=== PATIENT | female | born 1935 | race Caucasian/White ===

== ENCOUNTER 2016-11-13 20:29 | Inpatient (IN) | payer OTHER ==
[~2016-11-13] VITALS: Ht 160 cm; Wt 68.0 kg
--- NOTE | ~2016-11-13 | 2DMMODE ---
[facility] [address] [place] [address] 2 D/M-MODE ECHOCARDIOGRAM Name: LONG JAMES Room #: 422-P [facility] IN [facility]#: [id number] Admission: 11/13/16 Attend Phys: Greg Wong MD Discharge: Date of : 33 Date of Service: 11/14/16 1039 Report #: [id number] THIS REPORT FOR: //name// APPROVED REPORT EXAM: Comprehensive 2D, Doppler, and color-flow Echocardiogram Patient Location: Bedside/Room 422 Blood Pressure: 109/40 mmHg HR: 73 bpm Rhythm: Irregular Other Information Study Quality: Adequate Indications Elevated BNP. Hx: HTN, HLP, DM 2D Dimensions RVDd: 33.56 mm LVEF(%): 69.37 (>50%) IVSd: 11.31 (7-11mm) LVOT Diam: 18.16 (18-24mm) LVDd: 41.81 mm PWd: 10.93 (7-11mm) Ascending Aorta: 35.20 mm LVDs: 25.66 (25-40mm) Aortic Root: 37.00 mm James's LVEF: 69.37 % Volumes Left Atrial Volume (Systole) Single Plane 4CH: 44.98 mL Single Plane 2CH: 61.29 mL LA ESV Index: 32.00 mL/m2 Aortic Valve AoV Peak Kenneth.: 1.90 m/s AI PHT: 427.84 ms AO Peak Gr.: 14.38 mmHg LV Max P.90 mmHg LV Max: 1.31 m/s AI Vmax: 4.69 m/s AI [place]: 3.18 m/s2 Mitral Valve MV PHT: 65.58 ms MV E Max Kenneth.: 0.98 m/s E/A Ratio: 1.5 MV A Kenneth.: 0.66 m/s MV Decel. Time: 226.13 ms [facility] [address] [place] [address] 2 D/M-MODE ECHOCARDIOGRAM Name: LONG JAMES Kaitlyn Room #: 422-P [facility] IN [facility].#: [id number] Admission: 11/13/16 Attend Phys: Greg Wong MD Discharge: Date of : 33 Date of Service: 11/14/16 1039 Report #: [id number] TDI E/Lateral E': 13.00 E/Medial E': 23.00 Pulmonary Valve PV Peak Kenneth.: 1.03 m/s PV Peak Gr.: 4.20 mmHg Tricuspid Valve TR Peak Kenneth.: 3.40 m/s RAP Estimate: 5.00 mmHg TR Peak Gr.: 46.20 mmHg RVSP: 51.00 mmHg Left Ventricle The left ventricle is normal size. There is normal LV segmental wall motion. Borderline concentric left ventricular hypertrophy. Left ventricular systolic function is normal. LVEF is 65%. The diastolic function is normal for age. Right Ventricle The right ventricle is normal size. The right ventricular systolic function is normal. Atria The left atrium size is normal. The right atrium size is normal. Aortic Valve Aortic valve leaflets are mildly thickened. Mild to moderate aortic regurgitation. There is no aortic valvular stenosis. Mitral Valve Mitral valve leaflets are mildly thickened. Mild mitral annular calcification. Mild to moderate mitral regurgitation. Tricuspid Valve The tricuspid valve is normal in structure. There is mild to moderate tricuspid regurgitation. The right atrial pressure is estimated at 5 mmHg. Right ventricular systolic pressure is estimated at 51 mmHg. There is moderate pulmonary hypertension. Pulmonic Valve The pulmonary valve is normal in structure. Trace pulmonic regurgitation. Great Vessels Aortic root measures at the upper limits of normal. The ascending aorta is normal in size. IVC is normal in size and collapses >50% [address] [address] 2 D/M-MODE ECHOCARDIOGRAM Name: LONG JAMES Room #: 422-P [facility] IN [facility]#: [id number] Admission: 11/13/16 Attend Phys: Greg Wong MD Discharge: Date of : 33 Date of Service: 11/14/16 1039 Report #: [id number] with inspiration. Pericardium There is no pericardial effusion. <Conclusion> The left ventricle is normal size. Borderline concentric left ventricular hypertrophy. LVEF is 65%. Aortic valve leaflets are mildly thickened. Mild to moderate aortic regurgitation. Mitral valve leaflets are mildly thickened. Mild mitral annular calcification. Mild to moderate mitral regurgitation. There is mild to moderate tricuspid regurgitation. The right atrial pressure is estimated at 5 mmHg. Right ventricular systolic pressure is estimated at 51 mmHg. There is moderate pulmonary hypertension. Trace pulmonic regurgitation. <ELECTRONICALLY SIGNED> By: Dale Madden MD 11/14/16 1039 1039 1039 Dale Madden MD /INF
--- NOTE | ~2016-11-13 | EKG ---
[place] [address] [facility] [place] [address] ELECTROCARDIOGRAM REPORT Name: LONG JAMSE Room #: 422-P [facility]#: [id number] Admission: 11/13/16 Attend Phys: Greg Wong MD Discharge: Date of : 33 Report #: [id number] THIS REPORT FOR: //name// [facility] ED Test Date: 2016-11-13 Test Time: 21:18:15 Pat Name: LONG JAMES Department: Room: [facility] Gender: F Scheduling Clerk: JESIKA : 1935 Requested By: Dean Cheema Order Number: [id number] MD: Carson Monzon Measurements Intervals [place] Rate: 70 P: -25 MN: 199 QRS: -27 QRSD: 90 T: 11 QT: 398 QTc: 430 Interpretive Statements Sinus rhythm No significant abnormality Baseline wander in lead(s) V1,V2,V6 No previous ECG available for comparison Electronically Signed On 11-14-2016 9:05:43 CDT by Carson Monzon [email or web address] <ELECTRONICALLY SIGNED> By: Carson Monzon MD, [facility] [id number] 17 17 Carson Monzon MD, [facility] /EPI
[~2016-11-13 20:29] MED LIST: ASPIR 8181 MG PO; AVAPRO300 MG PO; CENTRUM SILVER1 EAC4 PO; COLACE 100 MG100 MG PO; GLIPIZIDE XL5 MG PO; GLUCOTROL5 MG PO; KEFLEX500 MG PO; MILK OF MA2400 MG/10 PO; NORVASC 2.5 MG2.5 M1 GT; TOPROL XL100 MG PO; TYLENOL325 MG PO; ZOCOR20 MG PO
[2016-11-13 20:30] VITALS: BP 216/93
[2016-11-13] MEDS ORDERED: TOPROL XL100 MG PO (20:42)
[2016-11-13 21:14] LABS: HEMATOCRIT 42.2 % (37.0-47.0); HEMOGLOBIN 14.3 gm/dL (12.0-15.0); MCH 31.1 pg (26.0-34.0); MCV 91.5 fL (80.0-100.0); PLATELET COUNT 122 thou/uL (150-400); RBC 4.61 mil/uL (4.20-5.00); RDW 13.2 % (10.5-14.5); WBC 5.9 thou/uL (4.0-11.0)
[2016-11-13 21:17] LABS: MANUAL DIFF YES
[2016-11-13 21:22] LABS: CALCIUM 8.9 mg/dL (8.5-10.1); CREATININE 1.5 mg/dL (0.6-1.3); POTASSIUM 3.6 mmol/L (3.5-5.1)
[2016-11-13 21:32] LABS: ABSOLUTE NEUTROPHILS 4.2 thou/uL (1.4-8.2); TOTAL CELL COUNT 100
[2016-11-13 21:41] LABS: ALBUMIN 3.6 g/dL (3.4-5.0); CK-MB MASS 2.5 ng/mL (<0.5-3.6); MAGNESIUM 1.6 mg/dL (1.8-2.4); TOTAL BILIRUBIN 0.5 mg/dL (<0.1-1.0); TOTAL PROTEIN 7.4 g/dL (6.4-8.2); TROPONIN-I 0.05 ng/mL (<0.04-0.07)
[2016-11-13 22:00] LABS: URINE BILIRUBIN NEGATIVE (Negative); URINE BLOOD 3+ (Negative); URINE COLOR YELLOW; URINE GLUCOSE-RANDOM* NEGATIVE (Negative); URINE KETONES NEGATIVE (Negative); URINE LEUKOCYTES-REFLEX NEGATIVE (Negative); URINE PROTEIN (DIPSTICK) 2+ (Negative); URINE UROBILINOGEN 0.2 E.U./dl (0.2-1.0)
[2016-11-13 22:09] LABS: CRYSTALS None Seen /LPF (None Seen); SQUAMOUS 4-10 Moderate /LPF (0-3); URINE RBC 3-10 Few /HPF (0-2); URINE WBC-REFLEX 0-5 Rare /HPF (0-5)
[2016-11-13 22:10] LABS: HYALINE CASTS 0-3 Few /LPF (None Seen)
[2016-11-13 23:27] VITALS: BP 159/77
[2016-11-13 23:30] VITALS: BP 177/84
[2016-11-14 04:00] VITALS: BP 109/40
[2016-11-14 08:48] VITALS: BP 166/68
[2016-11-14 20:00] VITALS: BP 124/88
[2016-11-15 04:00] VITALS: BP 135/66
[2016-11-15 04:21] LABS: HEMATOCRIT 36.3 % (37.0-47.0); MCH 31.2 pg (26.0-34.0); MCHC 33.9 g/dL (28.0-37.0); MCV 92.1 fL (80.0-100.0); RBC 3.94 mil/uL (4.20-5.00); RDW 13.1 % (10.5-14.5); WBC 4.2 thou/uL (4.0-11.0)
[2016-11-15 04:32] LABS: HEMOGLOBIN 12.3 gm/dL (12.0-15.0)
[2016-11-15 04:34] LABS: CALCIUM 8.4 mg/dL (8.5-10.1); CREATININE 1.3 mg/dL (0.6-1.3); POTASSIUM 3.4 mmol/L (3.5-5.1)
[2016-11-15 09:51] VITALS: BP 117/57
[2016-11-15 15:21] VITALS: BP 117/57
[2016-11-15 20:00] VITALS: BP 141/61
[2016-11-16 04:00] VITALS: BP 177/76
[2016-11-16 04:09] LABS: HEMATOCRIT 37.7 % (37.0-47.0); HEMOGLOBIN 12.9 gm/dL (12.0-15.0); MCH 31.3 pg (26.0-34.0); MCHC 34.1 g/dL (28.0-37.0); MCV 91.8 fL (80.0-100.0); RBC 4.11 mil/uL (4.20-5.00); RDW 13.1 % (10.5-14.5); WBC 3.6 thou/uL (4.0-11.0)
[2016-11-16 04:25] LABS: CALCIUM 8.5 mg/dL (8.5-10.1); CREATININE 1.2 mg/dL (0.6-1.3); POTASSIUM 3.4 mmol/L (3.5-5.1)
[2016-11-16 08:00] VITALS: BP 181/81
[2016-11-16] MEDS ORDERED: AMLODIPINE BESYL5 M1 PO (15:54)
[2016-11-16] MEDS ORDERED: TAMIFLU30 MG PO (15:54)
[2016-11-16] MEDS ORDERED: MUCINEX DM TABL1 TA1 PO (15:55)
[2016-11-16] MEDS ORDERED: CEFUROXIME250 MG PO (15:55)
[2016-11-16 19:33] VITALS: BP 117/57
[2016-11-17] MEDS ORDERED: TAMIFLU30 MG PO (11:09)
== END 2016-11-16 19:00 | disposition home health service (06) | DRG 682 ==
LOC: ER 20:29 → EROBS 22:02 → 4E 22:02
PROVIDERS: Emergency Medicine; Hospitalist
DX: I12.9 Hypertensive chronic kidney disease with stage 1 through stage 4 chronic kidney disease, or unspecified chronic kidney disease (principal); J10.00 Influenza due to other identified influenza virus with unspecified type of pneumonia; J96.01 Acute respiratory failure with hypoxia; I16.0 Hypertensive urgency; E78.5 Hyperlipidemia, unspecified; E11.22 Type 2 diabetes mellitus with diabetic chronic kidney disease; I95.9 Hypotension, unspecified; N18.3 Chronic kidney disease, stage 3 (moderate); E83.42 Hypomagnesemia; F03.90 Unspecified dementia, unspecified severity, without behavioral disturbance, psychotic disturbance, mood disturbance, and anxiety; E66.9 Obesity, unspecified; Z68.26 Body mass index [BMI] 26.0-26.9, adult; Z90.49 Acquired absence of other specified parts of digestive tract; Z86.73 Personal history of transient ischemic attack (TIA), and cerebral infarction without residual deficits